=== PATIENT | female | born 1960 | race Caucasian/White ===

== ENCOUNTER 2023-04-03 07:32 | Emergency (ER) | payer OTHER ==
[~2023-04-03] VITALS: Ht 154.9 cm; Wt 70.9 kg
[~2023-04-03 07:32] MED LIST: ASPIR-LOW81 MG PO; NO HOME MEDICATIONS; NORCO 325 MG-51 TAB PO
[2023-04-03 07:36] VITALS: BP 169/78; TEMP 97.9
[2023-04-03] MEDS ORDERED: THE MEDICINE S200 M2 PO (08:05)
[2023-04-03] MEDS ORDERED: MILK THISTLE150 MG PO (08:05)
[2023-04-03] MEDS ORDERED: VITAMIN D 400400 IU PO (08:06)
[2023-04-03] MEDS ORDERED: GLUCOSAMINE SU500 M2 PO (08:06)
[2023-04-03] MEDS ORDERED: NATURAL C500 MG PO (08:06)
[2023-04-03] MEDS ORDERED: NORCO 325 MG-51 TAB PO (08:47)
[2023-04-03] MEDS ORDERED: FLEXERIL 1010 MG/TAB PO (08:47)
[2023-04-03 09:00] VITALS: PULSE 81
== END 2023-04-03 09:01 | disposition home or self-care (01) ==
LOC: COL.ER 07:32
DX: S39.012A Strain of muscle, fascia and tendon of lower back, initial encounter (principal); X50.0XXA Overexertion from strenuous movement or load, initial encounter; Y93.F2 Activity, caregiving, lifting
CPT/HCPCS: J2270; J3360